=== PATIENT | female | born 1995 | race Hispanic/Latino ===

== ENCOUNTER → 2016-12-30 | Outpatient (REF) | payer OTHER ==
[2016-12-30 18:42] LABS: MEAN CORPUSCULAR HGB CONC 33.8 g/dl (32.0-36.5); MEAN CORPUSCULAR VOLUME 91.8 fl (80.0-96.0); RED CELL DISTRIBUTION WIDTH 13.5 % (11.5-14.5); WHITE BLOOD COUNT 7.3 K/mm3 (4.0-10.0)
== END ==
LOC: M LAB REF 16:31
PROVIDERS: ATTEND Obstetrics & Gynecology
DX: Z34.82 Encounter for supervision of other normal pregnancy, second trimester (principal); Z36 Encounter for antenatal screening of mother; Z3A.00 Weeks of gestation of pregnancy not specified

== ENCOUNTER → 2017-01-12 | Outpatient (REF) | payer OTHER | LOC: M LAB REF 16:27 | PROVIDERS: ATTEND Advanced Practice Midwife | DX: Z34.82 Encounter for supervision of other normal pregnancy, second trimester (principal); Z36 Encounter for antenatal screening of mother; Z3A.00 Weeks of gestation of pregnancy not specified ==

== ENCOUNTER → 2017-02-17 | Outpatient (CLI) | payer OTHER ==
[2017-02-17 10:06] LABS: MEAN CORPUSCULAR HEMOGLOBIN 30.6 pg (27.0-33.0); MEAN CORPUSCULAR HGB CONC 33.7 g/dl (32.0-36.5); MEAN CORPUSCULAR VOLUME 90.8 fl (80.0-96.0); RED CELL DISTRIBUTION WIDTH 13.5 % (11.5-14.5)
[2017-02-18 16:16] LABS: WHITE BLOOD COUNT 8.9 K/mm3 (4.0-10.0)
== END ==
LOC: M LAB 08:26
PROVIDERS: ATTEND Advanced Practice Midwife
DX: Z34.82 Encounter for supervision of other normal pregnancy, second trimester (principal); Z36 Encounter for antenatal screening of mother; Z3A.00 Weeks of gestation of pregnancy not specified

== ENCOUNTER → 2017-04-16 | Outpatient (REF) | payer OTHER | LOC: M LAB REF 16:22 | PROVIDERS: ATTEND Obstetrics & Gynecology | DX: Z34.83 Encounter for supervision of other normal pregnancy, third trimester (principal); Z36 Encounter for antenatal screening of mother; Z3A.00 Weeks of gestation of pregnancy not specified ==

== ENCOUNTER 2017-05-08 10:53 | Inpatient (IN) | payer OTHER ==
[~2017-05-08] VITALS: Ht 162.6 cm; Wt 63.0 kg
[2017-05-08] VITALS (23 sets, daily range): BP systolic 94–138; BP diastolic 50–78
[2017-05-08] MEDS ORDERED: IRON65TA PO (11:01)
[2017-05-08 13:43] LABS: MEAN CORPUSCULAR HEMOGLOBIN 31.6 pg (27.0-33.0); MEAN CORPUSCULAR HGB CONC 33.6 g/dl (32.0-36.5); RED CELL DISTRIBUTION WIDTH 14.1 % (11.5-14.5); WHITE BLOOD COUNT 10.9 K/mm3 (4.0-10.0)
[2017-05-08] MEDS ORDERED: LR 1,000 ML IV SCH (16:46)
[2017-05-08] MEDS ORDERED: OXYTOCIN DRIP 30 UNITS in APPROPRIATE DILUENT 1 EA IV SCH ×2 (17:00→21:17)
[2017-05-08] MEDS ORDERED: PROMETHAZINE INJ 25 MG/ML VIAL (J2550) As Ordered ONE (18:51)
[2017-05-08] MEDS ORDERED: BUTORPHANOL 2 MG/ML INJ (J0595) As Ordered ONE (18:52)
[2017-05-08] MEDS ORDERED: PROMETHAZINE INJ 25 MG/ML VIAL (J2550) IV ONE (19:00)
[2017-05-08] MEDS ORDERED: BUTORPHANOL 2 MG/ML INJ (J0595) IV ONE (19:00)
[2017-05-08] MEDS ORDERED: METHYLERGONOVINE MALEATE 0.2 MG/ML VIAL (J2210) As Ordered ONE (21:00)
[2017-05-08 21:16] LABS: CORD GAS ABE A -9.2; CORD GAS HCO3 A 21.6 MEQ/L; CORD GAS O2 SAT A 41.2 %; CORD GAS PCO2 A 68.7 mmHg; CORD GAS PH A 7.115 UNITS; CORD GAS PO2 A 23.2 mmHg; CORD GAS SBC A 16.1 MEQ/L; CORD GAS TCO2 A 23.7 MEQ/L
[2017-05-08 21:18] LABS: CORD GAS ABE V -8.6; CORD GAS HCO3 V 17.4 MEQ/L; CORD GAS O2 SAT V 81.1 %; CORD GAS PCO2 V 37.7 mmHg; CORD GAS PH V 7.281 UNITS; CORD GAS SBC V 17.3 MEQ/L; CORD GAS TCO2 V 18.5 MEQ/L
[2017-05-08] MEDS ORDERED: METHYLERGONOVINE MALEATE 0.2 MG/ML VIAL (J2210) IM ONE (21:30)
[2017-05-08] MEDS ORDERED: METHYLERGONOVINE MALEATE 0.2 MG TAB PO PRN (21:30)
[2017-05-08] MEDS ORDERED: RHOGAM 300 MCG (1500 IU) INJ (J2790) IM SCH (21:30)
[2017-05-08] MEDS ORDERED: DOCUSATE SODIUM 100 MG CAP PO PRN (21:30)
[2017-05-08] MEDS ORDERED: MEASLES,MUMPS,RUBELLA VACCINE INJ (MMR-II) (90707) SC SCH (21:30)
[2017-05-08] MEDS ORDERED: DIBUCAINE 1% OINTMENT 30GM TOP PRN (21:30)
[2017-05-08] MEDS: IBUPROFEN 800 MG TAB PO PRN (21:42)
--- NOTE | 2017-05-08 22:14 | HPE ---
DATE OF ADMISSION: 05/08/2017 Alexandria is a 21-year-old female 0-0-1-0 with an estimated date of delivery (EDC) of 05/09/2017, esophagogastroduodenoscopy (EGD) of 39-6/7 weeks gestation who presented with complaints of contractions. Upon evaluation, she was found to be in active labor. At this point a decision was made for admission. Her record reviewed, which was essentially unremarkable. lab: Blood type is A+, rubella immune, hepatitis negative, HIV negative, GC chlamydia negative, 1-hour sugar testing was within normal limits. Her GBS is negative. PAST MEDICAL AND SURGICAL HISTORY: Denies. SOCIAL HISTORY: Denies any alcohol, drugs or cigarette smoking. REVIEW OF SYSTEMS: Unremarkable. MEDICATIONS: vitamins ALLERGIES: NO KNOWN DRUG ALLERGIES. PHYSICAL EXAMINATION: Normal-appearing female in no acute distress. Abdomen: Soft, nontender, nondistended. Extremities: No clubbing, cyanosis or edema. Vaginal examination: 4 to 5 cm dilated, 90% effaced, fetus at -0 station. Tracing reviewed. Category one tracing with contractions every 3-4 minutes. ASSESSMENT: Intrauterine at 39-6/7 weeks gestation in active labor. GBS negative. PLAN: Admit to labor and delivery. Routine labs sent. Pain management discussed. The patient opts for no pain meds at this point. Will continue to monitor. Anticipate delivery.
[2017-05-09 06:20] VITALS: BP 97/55
[2017-05-09] MEDS: IBUPROFEN 800 MG TAB PO PRN ×2 (08:58→18:11)
[2017-05-09] MEDS: PRENATAL VITAMINS CHEWABLE TABLET PO SCH (08:59)
[2017-05-09] MEDS: ACETAMINOPHEN 500 MG TAB PO PRN ×2 (13:59→22:42)
[2017-05-09 18:10] VITALS: BP 117/51
[2017-05-10 06:23] VITALS: BP 118/57
[2017-05-10] MEDS ORDERED: ACET50TA PO (08:45)
[2017-05-10] MEDS ORDERED: IBUP-1114 PO (08:45)
[2017-05-10] MEDS: PRENATAL VITAMINS CHEWABLE TABLET PO SCH (09:03)
[2017-05-10] MEDS: IBUPROFEN 800 MG TAB PO PRN (10:42)
--- NOTE | 2017-05-11 08:09 | DN ---
DATE: 05/08/2017 DELIVERY NOTE: Alexandria is a 21-year-old female, 2, para 0-0-1-0 who was admitted at 39 and 6/7 weeks' gestation in active labor. She progressed to fully dilated after artificial rupture of membranes and pitocin augmentation. Then pushed and delivered a live female infant in the right occiput anterior position with a right compound hand. was 9/9. weight 8 pounds 5 ounces. The placenta delivered spontaneously intact, three-vessel cord. The perineum, vagina, and cervix were inspected. No laceration was noted. Estimated blood loss was 350 mL. One dose of Methergine IM given after delivery of the placenta to control excess bleeding. Both mother and baby were in stable condition.
== END 2017-05-10 14:30 | disposition home or self-care (01) | DRG 560 ==
LOC: M LDO 10:53 → M LDI 12:09 → M OBS 22:38
PROVIDERS: ADMIT Obstetrics & Gynecology; ATTEND Obstetrics & Gynecology
PROC: 10E0XZZ Delivery of Products of Conception, External Approach (ICD-10-PCS; principal; 2017-05-08)
PROC: 10907ZC Drainage of Amniotic Fluid, Therapeutic from Products of Conception, Via Natural or Artificial Opening (ICD-10-PCS; 2017-05-08)
DX: O32.6XX0 Maternal care for compound presentation, not applicable or unspecified (principal); Z37.0 Single live birth; Z3A.39 39 weeks gestation of pregnancy